=== PATIENT | female | born 1950 | race Caucasian/White ===

== ENCOUNTER → 2018-07-14 | Outpatient (CLI) | payer BC ==
--- NOTE | 2018-07-14 17:10 | PCVCIMAG ---
APPROVED REPORT Study performed: 07/14/2018 13:35:18 EXAM: Comprehensive 2D, Doppler, and color-flow Echocardiogram Patient Location: Echo lab Room #: 2Status: routine BSA: 2.13 HR: 53 bpmBP: 134/72 mmHg Other Information Risk Factors: Cardiac Risk Factors: HTN Indications CAD Hypertension/HDD Cor Ca+>400 2D Dimensions IVSd: 8.55 (7-11mm)LVOT Diam: 21.47 (18-24mm) LVDd: 37.94 mm PWd: 13.84 (7-11mm)Ascending Ao: 29.80 (22-36mm) LVDs: 21.68 (25-40mm) Left Atrium: 23.12 (27-40mm) Aortic Root: 21.32 mm LV Single Plane 4CH: 62.89 % LV Single Plane 2CH: 62.40 % Biplane EF: 64.4 % Volumes Left Atrial Volume (Systole) Single Plane 4CH: 31.28 mLSingle Plane 2CH: 33.62 mL Biplane LA Volume: 36.00 mLLA ESV Index: 17.00 mL/m2 Aortic Valve AoV Peak Geoff.: 2.22 m/s AO Peak Gr.: 20.57 mmHgLVOT Max P.52 mmHg AO Mean Gr.: 10.88 mmHgLVOT Mean P.46 mmHg AO V2 Mean: 1.57 m/sLVOT Max V: 1.21 m/s AO V2 VTI: 55.70 cmLVOT Mean V: 0.88 m/s JOY (VTI): 2.00 [id number] V1 VTI: 30.84 cm JOY Vmax: 1.97 cm2 SV (LVOT): 111.54 mL Mitral Valve E/A Ratio: 1.1 MV Decel. Time: 170.60 ms MV E Max Geoff.: 1.06 m/s MV A Geoff.: 0.96 m/s TDI E/Lateral E': 10.60E/Medial E': 15.14 Medial E' Geoff.: 0.07 m/s Lateral E' Geoff.: 0.10 m/s Pulmonary Vein P Vein S: 0.45 m/sP Vein A: 0.32 m/s P Vein D: 0.43 m/sP Vein A Dur.: 114.2 msec P Vein S/D Ratio: 1.05 Tricuspid Valve TR Peak Geoff.: 2.43 m/s TR Peak Gr.: 23.65 mmHg TV Vmax: 0.66 m/sPA Pressure: 31.00 mmHg Left Ventricle The left ventricle is normal size. There is normal LV segmental wall motion. Mild concentric left ventricular hypertrophy. The left ventricular systolic function is normal. The left ventricular ejection fraction is within the normal range. LVEF is 60-65%. Right Ventricle The right ventricle is normal size. The right ventricular systolic function is normal. Atria The left atrium size is normal. The right atrium size is normal. Aortic Valve Aortic valve is not well visualized. The Aortic valve is sclerotic. No aortic regurgitation is present. Mild aortic stenosis. Highest mean aortic valve gradient is 11 mmHg. Peak aortic valve gradient is 19.7_mmHg. Calculated JOY by the continuity equation is _1.9_cm2. Mitral Valve The mitral valve is normal in structure. There is no mitral valve regurgitation noted. No evidence of mitral valve stenosis. Tricuspid Valve The tricuspid valve is normal in structure. Trace tricuspid regurgitation with a PA pressure of 31 mmHg. Pulmonic Valve The pulmonary valve is normal in structure. There is no pulmonic valvular regurgitation. Great Vessels The aortic root is normal in size. The ascending aorta is normal in size. Aortic arch is normal in caliber. IVC is normal in size and collapses >50% with inspiration. Pericardium There is no pericardial effusion. There is no pleural effusion. <Conclusion> The left ventricle is normal size. Mild concentric left ventricular hypertrophy. The left ventricular systolic function is normal. The right ventricle is normal size. The left atrium size is normal. Aortic valve is not well visualized. Mild aortic stenosis. There is no mitral valve regurgitation noted. Trace tricuspid regurgitation with a PA pressure of 31 mmHg.
== END | disposition home or self-care (01) ==
LOC: PCVCIMAG 07:58
PROVIDERS: ATTEND Internal Medicine Cardiovascular Disease
DX: I10 Essential (primary) hypertension (principal); I06.1 Rheumatic aortic insufficiency; R60.0 Localized edema; R06.09 Other forms of dyspnea; I25.10 Atherosclerotic heart disease of native coronary artery without angina pectoris
CPT/HCPCS: 93306